=== PATIENT | female | born 1995 | race Caucasian/White ===

== ENCOUNTER 2024-01-14 20:29 | Emergency (ER) | payer OTHER ==
[~2024-01-14] VITALS: Ht 165.1 cm; Wt 59.0 kg
[2024-01-15 01:09] VITALS: BP 117/64; TEMP 97.9; O2SAT 98
== END 2024-01-15 01:17 | disposition home or self-care (01) ==
LOC: M ED 20:29
DX: S90.111A Contusion of right great toe without damage to nail, initial encounter (principal); Y92.019 Unspecified place in single-family (private) house as the place of occurrence of the external cause; Y93.9 Activity, unspecified; Y99.9 Unspecified external cause status